=== PATIENT | male | born 2000 | race Caucasian/White ===

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

== ENCOUNTER 2018-09-21 17:49 | Emergency (ER) | payer OTHER ==
[~2018-09-21] VITALS: Ht 172.7 cm; Wt 131.3 kg
[~2018-09-21 17:49] MED LIST changes: +NAPR-683 PO; +ONDA4TAB10 SL
[2018-09-21] MEDS ORDERED: ONDANSETRON ODT 4 MG TAB.RAPDIS ONE (18:01)
[2018-09-21 18:24] LABS: BASO # 0.1 x10^3/uL (0.0-0.2); BASO % 0 % (0-3); EOS % 0 % (0-3); HEMATOCRIT 48.6 % (39.0-53.0); HEMOGLOBIN 16.3 g/dL (13.0-17.5); LYMPH # 0.4 x10^3/uL (1.0-4.8); LYMPH % 2 % (24-48); MEAN CORPUSCULAR HEMOGLOBIN 30 pg (25-35); MEAN CORPUSCULAR HGB CONC 34 g/dL (31-37); MEAN CORPUSCULAR VOLUME 88 fL (79-100); MONO % 5 % (0-9); NEUT # 16.3 x10^3uL (1.8-7.7); NEUT % 92 % (31-73); PLATELET COUNT 380 x10^3/uL (140-400); RED BLOOD COUNT 5.53 x10^6/uL (4.30-5.70); RED CELL DISTRIBUTION WIDTH 13.9 % (11.5-14.5); WHITE BLOOD COUNT 17.7 x10^3/uL (4.0-11.0)
[2018-09-21 18:28] LABS: CALCIUM 9.4 mg/dL (8.5-10.1); CREATININE 1.2 mg/dL (0.7-1.3); GFR 77.2; POTASSIUM 4.3 mmol/L (3.5-5.1)
[2018-09-21 18:30] LABS: BACTERIA,URINE 0 /HPF (0-FEW); BILIRUBIN,URINE NEG (NEG); CLARITY,URINE CLOUDY; COLOR,URINE STRAW; GLUCOSE,URINE NEG (NEG); NITRITE,URINE NEG (NEG); RBC,URINE 0 /HPF (0-2); SQUAMOUS EPITHELIAL CELL,UR OCC /LPF; UROBILINOGEN,URINE 0.2 mg/dL (0.2 mg/dL); WBC,URINE OCC /HPF (0-4)
[2018-09-21] MEDS ORDERED: ONDANSETRON ODT 4 MG TAB.RAPDIS PO ONE (18:30)
[2018-09-21] MEDS ORDERED: IV RINGERS SOLUTION,LACTATED 1,000 ML IV ONE (18:30)
[2018-09-21] MEDS ORDERED: ONDANSETRON PF 4 MG/2 ML VIAL. IV ONE ×2 (18:30→19:00)
[2018-09-21] MEDS ORDERED: KETOROLAC 30 MG/ML VIAL. IV ONE (18:30)
--- NOTE | 2018-09-21 18:30 | ED.ADGEN ---
Past History Past Medical History: No Pertinent History Past Medical History ADHD- take Adderall Past Surgical History: Tonsillectomy Smoking: Non-smoker Alcohol Use: None Drug Use: None Adult General Chief Complaint Chief Complaint ".. I ve been puking all day... 15 x... and now got diarrhea... 9 x tonight... One of my room mates were sick...but he never got the diarrhea... I last ate cracker this morning... before all this started..." HPI HPI Patient is a 18 year old male who presents with above hx and complaints of generalized abdomen pain,nausea and vomiting. Pt. denies intake of bad food. No recent travel. Room mate ill with similar presentation but is now well. No contact of birds, reptiles or ill pets No hx of trauma. Pt. normally follows with Dr. fisher at [facility]. Pt. currently dry heaving. Pt. complaints of some bilateral flank pain, but states when he gets dehydrated he gets this kind of discomfort. Review of Systems Review of Systems Constitutional: Denies fever or chills [] Eyes: Denies change in visual acuity, redness, or eye pain [] HENT: Denies nasal congestion or sore throat [] Respiratory: Denies cough or shortness of breath [] Cardiovascular: No additional information not addressed in HPI [] GI: Complains of generalized abdominal pain, nausea, vomiting, and diarrhea [] : Denies dysuria or hematuria [] Musculoskeletal: Denies joint pain []Some mild low flank pain. Integument: Denies rash or skin lesions [] Neurologic: Denies headache, focal weakness or sensory changes [] Endocrine: Denies polyuria or polydipsia [] All other systems were reviewed and found to be within normal limits, except as documented in this note. Family History Family History Uncontributory Current Medications Current Medications Current Medications Medications (Trade) Dose Ordered Sig/Antonio Start Time Stop Time Status Last Admin Dose Admin Ketorolac Tromethamine (Toradol 30mg Vial) 30 mg 1X ONCE 09/21/18 18:30 09/21/18 18:31 DC 09/21/18 18:30 30 MG Lactated Ringer's 1,000 ml @ 1,000 mls/hr 1X ONCE 09/21/18 18:30 09/21/18 19:29 DC 09/21/18 18:30 1,000 MLS/HR Ondansetron HCl (Zofran Odt) 4 mg 1X ONCE 09/21/18 18:30 09/21/18 18:31 DC 09/21/18 18:29 4 MG Ondansetron HCl (Zofran) 4 mg 1X ONCE 09/21/18 19:00 09/21/18 19:01 DC 09/21/18 18:30 4 MG Allergies Allergies Allergies Coded Allergies Type Severity Reaction Last Updated Verified Cephalosporins Allergy Intermediate hives 02/22/14 Yes Penicillins Allergy Intermediate 08/02/17 Yes Physical Exam Physical Exam Constitutional: Moderately acute distress, non-toxic appearance. [] HENT: Normocephalic, atraumatic, bilateral external ears normal, oropharynx drt , no oral exudates, nose normal. [] Eyes: PERRLA, EOMI, conjunctiva normal, no discharge. [] Neck: Normal range of motion, no tenderness, supple, no stridor. [] Cardiovascular:Tachycardia Heart rate regular rhythm, no murmur [] Lungs & Thorax: Bilateral breath sounds clear to auscultation [] Abdomen: Bowel sounds hyperactive, soft, generalized tenderness, no masses, no pulsatile masses. [] No penile discharge or testicular tenderness. Refuses rectal exam at this time. Skin: Warm, dry, no erythema, no rash. [] Back: No tenderness, no CVA tenderness. [] Extremities: No tenderness, no cyanosis, no clubbing, ROM intact, no edema. [] Neurologic: Alert and oriented X 3, normal motor function, normal sensory function, no focal deficits noted. [] Psychologic: Affect anxious, judgement normal, mood normal. [] Current Patient Data Vital Signs Vital Signs Date Time Temp Pulse Resp B/P (MAP) Pulse Ox O2 Delivery O2 Flow Rate FiO2 09/21/18 19:56 96 20 156/70 (98) 95 Room Air 09/21/18 17:50 98.1 Lab Results Laboratory Tests Test 09/21/18 18:00 White Blood Count 17.7 x10^3/uL (4.0-11.0) H Red Blood Count 5.53 x10^6/uL (4.30-5.70) Hemoglobin 16.3 g/dL (13.0-17.5) Hematocrit 48.6 % (39.0-53.0) Mean Corpuscular Volume 88 fL (79-100) Mean Corpuscular Hemoglobin 30 pg (25-35) Mean Corpuscular Hemoglobin Concent 34 g/dL (31-37) Red Cell Distribution Width 13.9 % (11.5-14.5) Platelet Count 380 x10^3/uL (140-400) Neutrophils (%) (Auto) 92 % (31-73) H Lymphocytes (%) (Auto) 2 % (24-48) L Monocytes (%) (Auto) 5 % (0-9) Eosinophils (%) (Auto) 0 % (0-3) Basophils (%) (Auto) 0 % (0-3) Neutrophils # (Auto) 16.3 x10^3uL (1.8-7.7) H Lymphocytes # (Auto) 0.4 x10^3/uL (1.0-4.8) L Monocytes # (Auto) 1.0 x10^3/uL (0.0-1.1) Eosinophils # (Auto) 0.0 x10^3/uL (0.0-0.7) Basophils # (Auto) 0.1 x10^3/uL (0.0-0.2) Platelet Estimate Pending Urine Collection Type Unknown Urine Color Straw Urine Clarity Cloudy Urine pH 5.0 Urine Specific Barnes >=1.030 Urine Protein Trace (NEG-TRACE) Urine Glucose (UA) Neg mg/dL (NEG) Urine Ketones (Stick) Trace mg/dL (NEG) Urine Blood Neg (NEG) Urine Nitrite Neg (NEG) Urine Bilirubin Neg (NEG) Urine Urobilinogen Dipstick 0.2 mg/dL (0.2 mg/dL) Urine Leukocyte Esterase Neg (NEG) Urine RBC 0 /HPF (0-2) Urine WBC Occ /HPF (0-4) Urine Squamous Epithelial Cells Occ /LPF Urine Amorphous Sediment Present /HPF Urine Bacteria 0 /HPF (0-FEW) Sodium Level 141 mmol/L (136-145) Potassium Level 4.3 mmol/L (3.5-5.1) Chloride Level 103 mmol/L (98-107) Carbon Dioxide Level 25 mmol/L (21-32) Anion Gap 13 (6-14) Blood Urea Nitrogen 26 mg/dL (8-26) Creatinine 1.2 mg/dL (0.7-1.3) Estimated GFR (Cockcroft-Gault) 77.2 Glucose Level 145 mg/dL (70-99) H Calcium Level 9.4 mg/dL (8.5-10.1) Urine Opiates Screen Neg (NEG) Urine Methadone Screen Neg (NEG) Urine Barbiturates Neg (NEG) Urine Phencyclidine Screen Neg (NEG) Urine Amphetamine/Methamphetamine Pos (NEG) Urine Benzodiazepines Screen Neg (NEG) Urine Cocaine Screen Neg (NEG) Urine Cannabinoids Screen Neg (NEG) Urine Ethyl Alcohol Neg (NEG) Influenza Type A (Rapid) Negative (NEGATIVE) Influenza Type B (Rapid) Negative (NEGATIVE) EKG EKG [] Radiology/Procedures Radiology/Procedures My interpretation of acute abdomen film shows no acute cardiopulmonary findings. No free air in the diaphragm. Non-obstructive bowel gas pattern.[] Course & Med Decision Making Course & Med Decision Making Pertinent Labs and Imaging studies reviewed. (See chart for details). Patient stay on a clear fluid diet only for the next 2 days. No milk products no solids. Must be on clear fluid diet only. Must allow bowel rest. Push fluids. Zofran 8 mg up to 4 times a day for nausea and vomiting. Patient may take Tylenol or prophylaxis needed for discomfort. Follow-up primary care. Return if any concerns. Pt. reports marked relief of symptoms been feeling much better at time of discharge. [] Final Impression Final Impression 1. Nausea, Vomiting, Diarrhea[]- suspect Viral syndrome 2. Dehydration Dragon Disclaimer Dragon Disclaimer This electronic medical record was generated, in whole or in part, using a voice recognition dictation system. Dragon Disclaimer This chart was dictated in whole or in part using Voice Recognition software in a busy, high-work load, and often noisy Emergency Department environment. It may contain unintended and wholly unrecognized errors or omissions. Discharge Summary Visit Information Final Diagnosis Problems Medical Problems: (1) Viral syndrome Status: Acute Brief Hospital Course Allergies Allergies Coded Allergies Type Severity Reaction Last Updated Verified Cephalosporins Allergy Intermediate hives 02/22/14 Yes Penicillins Allergy Intermediate 08/02/17 Yes Vital Signs Vital Signs Date Time Temp Pulse Resp B/P (MAP) Pulse Ox O2 Delivery O2 Flow Rate FiO2 09/21/18 19:56 96 20 156/70 (98) 95 Room Air 09/21/18 17:50 98.1 Lab Results Laboratory Tests Test 09/21/18 18:00 White Blood Count 17.7 x10^3/uL (4.0-11.0) Red Blood Count 5.53 x10^6/uL (4.30-5.70) Hemoglobin 16.3 g/dL (13.0-17.5) Hematocrit 48.6 % (39.0-53.0) Mean Corpuscular Volume 88 fL (79-100) Mean Corpuscular Hemoglobin 30 pg (25-35) Mean Corpuscular Hemoglobin Concent 34 g/dL (31-37) Red Cell Distribution Width 13.9 % (11.5-14.5) Platelet Count 380 x10^3/uL (140-400) Neutrophils (%) (Auto) 92 % (31-73) Lymphocytes (%) (Auto) 2 % (24-48) Monocytes (%) (Auto) 5 % (0-9) Eosinophils (%) (Auto) 0 % (0-3) Basophils (%) (Auto) 0 % (0-3) Neutrophils # (Auto) 16.3 x10^3uL (1.8-7.7) Lymphocytes # (Auto) 0.4 x10^3/uL (1.0-4.8) Monocytes # (Auto) 1.0 x10^3/uL (0.0-1.1) Eosinophils # (Auto) 0.0 x10^3/uL (0.0-0.7) Basophils # (Auto) 0.1 x10^3/uL (0.0-0.2) Urine Collection Type Unknown Urine Color Straw Urine Clarity Cloudy Urine pH 5.0 Urine Specific Barnes >=1.030 Urine Protein Trace (NEG-TRACE) Urine Glucose (UA) Neg mg/dL (NEG) Urine Ketones (Stick) Trace mg/dL (NEG) Urine Blood Neg (NEG) Urine Nitrite Neg (NEG) Urine Bilirubin Neg (NEG) Urine Urobilinogen Dipstick 0.2 mg/dL (0.2 mg/dL) Urine Leukocyte Esterase Neg (NEG) Urine RBC 0 /HPF (0-2) Urine WBC Occ /HPF (0-4) Urine Squamous Epithelial Cells Occ /LPF Urine Amorphous Sediment Present /HPF Urine Bacteria 0 /HPF (0-FEW) Sodium Level 141 mmol/L (136-145) Potassium Level 4.3 mmol/L (3.5-5.1) Chloride Level 103 mmol/L (98-107) Carbon Dioxide Level 25 mmol/L (21-32) Anion Gap 13 (6-14) Blood Urea Nitrogen 26 mg/dL (8-26) Creatinine 1.2 mg/dL (0.7-1.3) Estimated GFR (Cockcroft-Gault) 77.2 Glucose Level 145 mg/dL (70-99) Calcium Level 9.4 mg/dL (8.5-10.1) Urine Opiates Screen Neg (NEG) Urine Methadone Screen Neg (NEG) Urine Barbiturates Neg (NEG) Urine Phencyclidine Screen Neg (NEG) Urine Amphetamine/Methamphetamine Pos (NEG) Urine Benzodiazepines Screen Neg (NEG) Urine Cocaine Screen Neg (NEG) Urine Cannabinoids Screen Neg (NEG) Urine Ethyl Alcohol Neg (NEG) Influenza Type A (Rapid) Negative (NEGATIVE) Influenza Type B (Rapid) Negative (NEGATIVE) Brief Hospital Course Mr. Torres is a 18 old male who presented with what appears to be viral gastroenteritis. Discharge Information Condition at Discharge: Improved, Stable Disposition/Orders: D/C to Home Dischare Medications Current Medications Ondansetron HCl (Zofran Odt) 4 mg STK-MED ONCE .ROUTE ; Start 09/21/18 at 18:01 ; Stop 09/21/18 at 18:03; Status DC Ondansetron HCl (Zofran Odt) 4 mg 1X ONCE PO Last administered on 09/21/18at 18 :29; Admin Dose 4 MG; Start 09/21/18 at 18:30; Stop 09/21/18 at 18:31; Status DC Lactated Ringer's 1,000 ml @ 1,000 mls/hr 1X ONCE IV Last administered on at 18:30; Admin Dose 1,000 MLS/HR; Start 09/21/18 at 18:30; Stop 09/21/18 at 19:29; Status DC Ondansetron HCl (Zofran) 8 mg 1X ONCE IV ; Start 09/21/18 at 18:30; Stop at 18:31; Status DC Ketorolac Tromethamine (Toradol 30mg Vial) 30 mg 1X ONCE IV Last administered on 09/21/18at 18:30; Admin Dose 30 MG; Start 09/21/18 at 18:30; Stop 09/21/18 at 18:31; Status DC Ondansetron HCl (Zofran) 4 mg 1X ONCE IV Last administered on 09/21/18at 18:30 ; Admin Dose 4 MG; Start 09/21/18 at 19:00; Stop 09/21/18 at 19:01; Status DC Active Scripts Active Acetaminophen 500 Mg Tablet 1,000 Mg PO QIDPRN PRN Ibuprofen 800 Mg Tablet 800 Mg PO TID WITH FOOD PRN Zofran (Ondansetron Hcl) 8 Mg Tablet 8 Mg PO QIDPRN PRN Naprosyn (Naproxen) 500 Mg Tablet 1 Tab PO BID Zofran Odt (Ondansetron) 4 Mg Tab.rapdis 1 Tab SL Q8HRS Bactrim Ds Tablet (Sulfamethoxazole/Trimethoprim) 1 Each Tablet 1 Each PO BID 7 Days Reported Benadryl (Diphenhydramine Hcl) 25 Mg Capsule 25 Mg PO PRN Adderall Xr 25 Mg Capsule (Dextroamphetamine/Amphetamine) 25 Mg Cap.er.24h 25 Mg PO DAILY EMILIANO FELDMAN MD Sep 21, 2018 18:30
[2018-09-21 18:31] LABS: AMORPHOUS SEDIMENT,UR PRESENT /HPF
[2018-09-21 18:32] LABS: BARBITURATES NEG (NEG); BENZODIAZEPINES NEG (NEG); CANNABINOIDS NEG (NEG); COCAINE NEG (NEG); METHADONE NEG (NEG); OPIATES NEG (NEG); PHENCYCLIDINE NEG (NEG)
[2018-09-21 18:39] LABS: AMPHETAMINE/METHAMPHETAMINE POS (NEG)
[2018-09-21 18:40] LABS: INFLUENZA A PATIENT NEGATIVE (NEGATIVE); INFLUENZA B PATIENT NEGATIVE (NEGATIVE)
--- NOTE | 2018-09-21 19:25 | RAD ---
ACUTE ABDOMEN SERIES Indication: Abdominal pain, nausea and vomiting today no prior abdominal surgery or injury Date of service: 09/21/2018 .Comparison: None available Procedure: PA chest and upright and supine abdomen views are obtained. Findings: Chest: Cardiac size and pulmonary vessels are normal. Pneumonia, pneumothorax or pleural effusion are not present. Abdomen: No evidence of free air is present. Gas pattern is normal . Impression: Normal Chest . Normal abdomen without obstruction, ileus or free air . If indicated, CT scan of the abdomen would be useful for further evaluation. Electronically signed by: Cat Sofia MD (09/21/2018 7:21 PM) [facility]
[2018-09-21 20:19] VITALS: BP 143/71
[2018-09-21] MEDS ORDERED: ACET500T68 PO (20:29)
[2018-09-21] MEDS ORDERED: IBUP800T19 PO (20:29)
[2018-09-21] MEDS ORDERED: ONDA8TAB9 PO (20:29)
[2018-09-21 23:31] LABS: % BANDS 4 % (0-9); % LYMPHS 2 % (24-48); % MONOS 4 % (0-10); % SEGS 90 % (35-66)
[2018-09-21 23:32] LABS: OVALOCYTES OCC; PLT ESTIMATE ADEQUATE (ADEQUATE); POLYCHROMASIA SLIGHT
== END 2018-09-21 20:38 | disposition home or self-care (01) ==
LOC: ER 17:49
DX: B34.9 Viral infection, unspecified (principal); E86.0 Dehydration; Z88.0 Allergy status to penicillin; Z88.1 Allergy status to other antibiotic agents
CPT/HCPCS: 36415; 74022; 80048; 80307; 81001; 85007; 85025; 87804; 96374; 96375; 99284; J1885; J2405; J7120; Q0162

== ENCOUNTER 2019-01-17 09:18 | Emergency (ER) | payer OTHER ==
[~2019-01-17] VITALS: Ht 172.7 cm; Wt 127.6 kg
[~2019-01-17 09:18] MED LIST changes: +ACET500T68 PO; +IBUP800T19 PO; +ONDA8TAB9 PO
[2019-01-17] MEDS ORDERED: DIPHTH,PERTUSS(ACELL),TET TOX 0.5 ML DISP.SYRIN. VAX IM ONE (10:30)
[2019-01-17 10:34] VITALS: BP 134/90
--- NOTE | 2019-01-17 10:36 | PHYS DOC ---
Past History Past Medical History: No Pertinent History Past Surgical History: Tonsillectomy Smoking: Non-smoker Alcohol Use: None Drug Use: None Adult General Chief Complaint Chief Complaint: LACERATION/AVULSION HPI HPI Patient is a 18-year-old male with a laceration to the hand cut on the edge of a truck bed he was moving it fine mild numbness only Review of Systems Review of Systems d in this note. Current Medications Current Medications Current Medications Medications (Trade) Dose Ordered Sig/Antonio Start Time Stop Time Status Last Admin Dose Admin Diphtheria/ Tetanus/Acell Pertussis (Boostrix) 0.5 ml ONCE ONCE 01/17/19 10:30 01/17/19 10:31 DC 01/17/19 10:06 0.5 ML Allergies Allergies Allergies Coded Allergies Type Severity Reaction Last Updated Verified Cephalosporins Allergy Intermediate hives 02/22/14 Yes Penicillins Allergy Intermediate 08/02/17 Yes Physical Exam Physical Exam Constitutional: Well developed, well nourished, no acute distress, non-toxic ap pearance. [] HENT: Normocephalic, atraumatic, bilateral external ears normal, oropharynx moist, no oral exudates, nose normal. [] Eyes: PERRLA, EOMI, conjunctiva normal, no discharge. [] Pulmonary: Normal respiratory effort no increased work of breathing no obvious chest wall trauma Abdomen: Bowel sounds normal, soft, no tenderness, no masses, no pulsatile masses. [] Skin: There is a 3 cm laceration to the dorsum of the hand just radial to the MCP joint. Deep through visible muscle belly but there is no obvious tendon involvement identified patient has full strength against resistance bleeding controlled Neurologic: Alert and oriented X 3, normal motor function, mild decreased sensation light touch, no focal deficits noted. [] Psychologic: Affect normal, judgement normal, mood normal. [] EKG EKG [] Radiology/Procedures Radiology/Procedures [] Course & Med Decision Making Course & Med Decision Making Pertinent Labs and Imaging studies reviewed. (See chart for details) []Laceration repair: Verbal consent obtained irrigated profusely no foreign body identified lidocaine subcutaneous 1% without epinephrine for anesthesia was closed with simple interrupted 5-0 Ethilon patient tolerated well size 3 cm return precautions discussed wound care precautions given Dragon Disclaimer Dragon Disclaimer This electronic medical record was generated, in whole or in part, using a voice recognition dictation system. Departure Departure: Impression: Primary Impression: Laceration Disposition: 01 HOME, SELF-CARE Condition: STABLE Patient Instructions: Laceration Care, Adult, [id number] RAJWINDER CHUN MD January 17, 2019 10:36
== END 2019-01-17 10:36 | disposition home or self-care (01) ==
LOC: ER 09:18
DX: S61.411A Laceration without foreign body of right hand, initial encounter (principal); Z88.1 Allergy status to other antibiotic agents; Z88.0 Allergy status to penicillin; W26.8XXA Contact with other sharp object(s), not elsewhere classified, initial encounter; Y93.89 Activity, other specified; Y92.89 Other specified places as the place of occurrence of the external cause; Y99.8 Other external cause status
CPT/HCPCS: 12002; 90471; 90715; 99283-25